=== PATIENT | male | born 1950 | race African-American/Black ===

== ENCOUNTER 2017-01-18 22:17 | Emergency (ER) | payer MEDICAID, MEDICARE ==
[~2017-01-18] VITALS: Ht 175.3 cm; Wt 82.4 kg
[~2017-01-18 22:17] MED LIST: TAMS-11 PO
[2017-01-18 22:18] VITALS: BP 133/73
[2017-01-18] MEDS ORDERED: METHOCARBAMOL 750 MG TABLET ONE (22:55)
[2017-01-18] MEDS ORDERED: KETOROLAC 30 MG/1 ML ONE (22:55)
[2017-01-18] MEDS ORDERED: KETOROLAC 30 MG/1 ML IM ONE (23:00)
[2017-01-18] MEDS ORDERED: METHOCARBAMOL 750 MG TABLET PO ONE (23:00)
== END 2017-01-18 23:34 | disposition home or self-care (01) ==
LOC: ED 23:20
DX: M54.42 Lumbago with sciatica, left side (principal); M62.830 Muscle spasm of back; I10 Essential (primary) hypertension; Z87.891 Personal history of nicotine dependence
CPT/HCPCS: 72110; 96372; 99284; J1885

== ENCOUNTER 2017-01-20 23:45 | Emergency (ER) | payer MEDICARE ==
[~2017-01-20] VITALS: Ht 175.3 cm; Wt 83.9 kg
[2017-01-20 23:48] VITALS: BP 140/88
[2017-01-21] MEDS ORDERED: HYDROcodone/APAP 5/325 TABLET ONE (00:11)
[2017-01-21] MEDS ORDERED: HYDROcodone/APAP 5/325 TABLET PO ONE (00:30)
[2017-01-21] MEDS ORDERED: KETOROLAC 30 MG/1 ML IM ONE (00:30)
== END 2017-01-21 01:31 | disposition home or self-care (01) ==
LOC: ED 01-21 01:25
DX: M54.42 Lumbago with sciatica, left side (principal); I10 Essential (primary) hypertension
CPT/HCPCS: 99283; J7512